=== PATIENT | male | born 1935 | race Two or more races ===

== ENCOUNTER 2018-07-09 09:10 | Inpatient (IN) | payer OTHER ==
[~2018-07-09] VITALS: Ht 175.3 cm; Wt 86.6 kg
[~2018-07-09 09:10] MED LIST: GABAPENTIN800 MG PO; GLIMEPIRIDE2 MG PO; HYDRALAZINE HCL50 MG PO; LANTUS; SYNTH PO; SYNTHROID50 MCG PO; TAMS0.4C PO; VASOTEC10 MG PO; ZOCOR20 MG PO
[2018-07-14] MEDS ORDERED: PERCOCET 5-3251 EACH PO (07:45)
[2018-07-14] MEDS ORDERED: INTESTINEX680 M1 PO (07:45)
[2018-07-14] MEDS ORDERED: OMEPRAZOLE20 MG PO (07:45)
== END 2018-07-14 11:11 | disposition home or self-care (01) | DRG 331 ==
LOC: AMB-ENDOS 09:10 → O/R 16:33 → SURH 16:33 → AMB-ENDOS 16:42 → SURH 16:58 → MEDI 16:58 → SURH 07-14 11:11
PROVIDERS: Surgery
PROC: 30233N1 Transfusion of Nonautologous Red Blood Cells into Peripheral Vein, Percutaneous Approach (ICD-10-PCS; 2018-07-09)
PROC: 0DJD8ZZ Inspection of Lower Intestinal Tract, Via Natural or Artificial Opening Endoscopic (ICD-10-PCS; 2018-07-09)
PROC: 07TC4ZZ Resection of Pelvis Lymphatic, Percutaneous Endoscopic Approach (ICD-10-PCS; 2018-07-10)
PROC: 0DJD8ZZ Inspection of Lower Intestinal Tract, Via Natural or Artificial Opening Endoscopic (ICD-10-PCS; 2018-07-10)
PROC: 0DTN4ZZ Resection of Sigmoid Colon, Percutaneous Endoscopic Approach (ICD-10-PCS; principal; 2018-07-10 12:30)
PROC: 4A033R1 Measurement of Arterial Saturation, Peripheral, Percutaneous Approach (ICD-10-PCS; 2018-07-11)
PROC: 4A12X4Z Monitoring of Cardiac Electrical Activity, External Approach (ICD-10-PCS; 2018-07-11)
DX: C18.7 Malignant neoplasm of sigmoid colon (principal); R59.0 Localized enlarged lymph nodes; D64.89 Other specified anemias; E11.22 Type 2 diabetes mellitus with diabetic chronic kidney disease; I13.10 Hypertensive heart and chronic kidney disease without heart failure, with stage 1 through stage 4 chronic kidney disease, or unspecified chronic kidney disease; N18.3 Chronic kidney disease, stage 3 (moderate); G47.33 Obstructive sleep apnea (adult) (pediatric); E03.8 Other specified hypothyroidism; E78.00 Pure hypercholesterolemia, unspecified